=== PATIENT | male | born 1970 | race Caucasian/White ===

== ENCOUNTER 2019-12-27 12:39 | Emergency (ER) | payer OTHER ==
[~2019-12-27] VITALS: Ht 182.9 cm; Wt 90.5 kg
[2019-12-27] MEDS ORDERED: IBUP-1022 PO (13:10)
[2019-12-27] MEDS ORDERED: BOOSTRIX/ADACEL VACCINE (DIPHTH/PERTUSS/ACELL/TETANUS) 0.5ML SYR IM ONE (13:15)
[2019-12-27] MEDS ORDERED: NORCO, ANEXSIA 5/325MG TABLET (HYDROcodone/ACETAMINOPHEN) PO ONE (13:45)
[2019-12-27] MEDS ORDERED: NORC1TAB7 PO (14:04)
[2019-12-27 14:09] VITALS: BP 139/83
--- NOTE | 2019-12-27 14:45 | REP ---
LEFT SHOULDER: Three views of the left shoulder performed. There is a fracture of the body of the scapula. No other fracture is seen. There is no dislocation. There is a large spur of the humeral head with mild joint space narrowing at both the acromioclavicular and glenohumeral joints. IMPRESSION: Scapular fracture. Electronically Signed by Efrain Clarke MD 01/01/2020 06:10 P
--- NOTE | 2019-12-27 14:51 | REP ---
LEFT SCAPULA: Two views of the left scapula are performed. There is a fracture of the body of the scapula. There is no other evidence of acute fracture or dislocation. There are mild degenerative changes of the acromioclavicular and glenohumeral joints with a large spur of the humeral head noted. IMPRESSION: Scapular fracture. Electronically Signed by Efrain Clarke MD 01/01/2020 06:11 P
== END 2019-12-27 14:27 | disposition home or self-care (01) ==
LOC: M ED 12:39
DX: S42.115A Nondisplaced fracture of body of scapula, left shoulder, initial encounter for closed fracture (principal); S00.81XA Abrasion of other part of head, initial encounter; S90.511A Abrasion, right ankle, initial encounter; W22.8XXA Striking against or struck by other objects, initial encounter; W17.89XA Other fall from one level to another, initial encounter; Y92.812 Truck as the place of occurrence of the external cause; Y93.89 Activity, other specified; Y99.0 Civilian activity done for income or pay; Z23 Encounter for immunization